=== PATIENT | male | born 1950 | race Caucasian/White ===

== ENCOUNTER 2019-08-10 07:40 | Outpatient (CLI) | payer OTHER | END 2019-08-10 07:45 | LOC: LAB 07:40 | PROVIDERS: ATTEND Family Medicine | DX: E80.6 Other disorders of bilirubin metabolism (principal); E66.3 Overweight; I25.10 Atherosclerotic heart disease of native coronary artery without angina pectoris | CPT/HCPCS: 36415; 80061; P9603 ==